=== PATIENT | female | born 1955 | race Caucasian/White ===

== ENCOUNTER 2016-11-02 05:11 | Day surgery (SDC) | payer BC ==
[2016-10-31 13:25] LABS: HEMATOCRIT 40.3 % (36.0-47.0); HEMOGLOBIN 13.4 g/dL (12.0-15.5); HGB HCT DIFFERENCE -0.1; MEAN CORPUSCULAR HEMOGLOBIN 31.7 pg (27.0-33.4); MEAN CORPUSCULAR HGB CONC 33.2 g/dL (32.0-36.0); MEAN CORPUSCULAR VOLUME 96 fl (80-97); RED BLOOD COUNT 4.21 10^6/uL (3.72-5.28); RED CELL DISTRIBUTION WIDTH 13.3 % (11.5-14.0); WHITE BLOOD COUNT 8.4 10^3/uL (4.0-10.5)
[2016-10-31 13:29] LABS: APPEARANCE,URINE CLEAR; BILIRUBIN,URINE NEGATIVE (NEGATIVE); GLUCOSE, URINE NEGATIVE (NEGATIVE); KETONES,URINE NEGATIVE (NEGATIVE); LEUKOCYTE ESTERASE,URINE NEGATIVE (NEGATIVE); NITRITE,URINE NEGATIVE (NEGATIVE); PROTEIN,URINE NEGATIVE (NEGATIVE); URINE SPECIFIC GRAVITY 1.008; UROBILINOGEN,URINE NEGATIVE mg/dL (<2.0)
[2016-10-31 13:53] LABS: ANION GAP 9 (5-19); BLOOD UREA NITROGEN 13 mg/dL (7-20); CALCIUM 9.3 mg/dL (8.4-10.2); CARBON DIOXIDE 31 mmol/L (22-30); CHLORIDE 103 mmol/L (98-107); CREATININE RESULT 0.67 mg/dL (0.52-1.25); GLUCOSE 80 mg/dL (75-110); POTASSIUM 3.8 mmol/L (3.6-5.0); SODIUM 143.3 mmol/L (137-145)
--- NOTE | 2016-10-31 15:25 | EKG REPORT ---
SEVERITY:- ABNORMAL ECG - SINUS RHYTHM PROBABLE LEFT VENTRICULAR HYPERTROPHY : Confirmed by: Familia Loco MD 31-Oct-2016 15:25:16
[~2016-11-02 05:11] MED LIST: CEFAZOLIN 1 GM/D5W RTU 1 GM/50 ML RTUPB IV PRN; LACTATED RINGERS 1000 ML IV PRN; LIDOCAINE 0.5% INJ-PF (5 MG/ML) 50 ML SDV SUBCUT PRN
[2016-11-02] MEDS ORDERED: PROPOFOL INJ 200 MG/20 ML VIAL IV ONE (06:43)
[2016-11-02] MEDS ORDERED: HYDROMORPHONE HCL INJ/PF 2 MG/ML AMPULE ONE (06:43)
[2016-11-02] MEDS ORDERED: KETOROLAC TROMETHAMINE 60 MG/2 ML SDV ONE (06:43)
[2016-11-02] MEDS ORDERED: FENTANYL CITRATE INJ/PF 100 MCG/2 ML AMPUL ONE (06:43)
[2016-11-02] MEDS ORDERED: MIDAZOLAM 2 MG/2 ML INJ ONE (06:43)
[2016-11-02] MEDS ORDERED: ACETAMINOPHEN 100 ML IV ONE (06:44)
[2016-11-02] MEDS ORDERED: FENTANYL CITRATE INJ/PF 100 MCG/2 ML AMPUL IV PRN ×3 (08:09)
[2016-11-02] MEDS ORDERED: PROMETHAZINE HCL INJ 25 MG/1 ML VIAL IV PRN (08:09)
[2016-11-02] MEDS ORDERED: MEPERIDINE HCL/PF INJ 25 MG/1 ML DISP.SYRIN IV PRN (08:09)
[2016-11-02] MEDS ORDERED: MORPHINE SULFATE 10 MG/ML INJ IV PRN (08:09)
[2016-11-02] MEDS ORDERED: DIPHENHYDRAMINE HCL 50 MG/ML VIAL IV PRN (08:09)
[2016-11-02] MEDS ORDERED: ONDANSETRON HCL INJ/PF 4 MG/2 ML SDV IV PRN (08:09)
[2016-11-02] MEDS ORDERED: SUCCINYLCHOLINE CHLORIDE INJ 200 MG/10 ML VIAL ONE (09:42)
[2016-11-02] MEDS ORDERED: GLYCOPYRROLATE INJ 0.4 MG/2 ML VIAL ONE (09:42)
[2016-11-02] MEDS ORDERED: ONDANSETRON HCL INJ/PF 4 MG/2 ML SDV ONE (09:42)
[2016-11-02] MEDS ORDERED: MORPHINE INJ 6 MG DOSE (EDIT ROUTE) IV PRN (10:30)
[2016-11-02] MEDS ORDERED: MORPHINE INJ 4 MG DOSE (EDIT ROUTE) IV PRN (10:30)
[2016-11-02] MEDS ORDERED: MORPHINE INJ 8 MG DOSE IM PRN (10:30)
[2016-11-02] MEDS ORDERED: PROMETHAZINE HCL INJ 25 MG/1 ML VIAL IM PRN (10:30)
[2016-11-02] MEDS ORDERED: AMLODIPINE BESYLATE 10 MG TABLET PO ONE (11:30)
[2016-11-02] MEDS: CEFAZOLIN 1 GM RTU (EDIT START TIME) IV SCH ×2 (11:30→18:38)
[2016-11-02] MEDS ORDERED: RINGERS SOLUTION,LACTATED 500 ML IV ONE (11:30)
[2016-11-02] MEDS ORDERED: LEVOTHYROXINE SODIUM 0.112 MG TABLET PO ONE (12:00)
--- NOTE | 2016-11-02 12:29 | OPERATIVE REPORT E ---
Operative Report NAME: CAROLINA MAR : 1955 AGE: 61Y DATE OF SURGERY: 11/02/2016 ROOM: 205 PREOPERATIVE DIAGNOSES: 1. UTEROVAGINAL PROLAPSE. 2. RECTOCELE. POSTOPERATIVE DIAGNOSES: 1. UTEROVAGINAL PROLAPSE. 2. RECTOCELE. OPERATION: Total vaginal hysterectomy, Delacruz culdoplasty, posterior colporrhaphy and perineoplasty. SURGEON: CHERELLE ALLEN M.D. ESTIMATED BLOOD LOSS: 150 mL. COMPLICATIONS: None. FINDINGS: Normal-appearing uterus, tubes and ovaries. No enterocele formation was noted. Moderate rectocele was appreciated. Good anterior vaginal vault support was appreciated after closure of the cuff precluding the anterior repair need requirement. PROCEDURE: The patient was taken to the operating room and placed in the modified lithotomy position. After adequate anesthesia ascertained, prepped and draped in the usual manner for vaginal hysterectomy. Bladder was drained under sterile technique. EUA performed. Surgical time-out was performed. Antibiotics had been given. Posterior colpotomy incision was made. The uterosacral ligaments were cross-clamped, and held. Cervix was circumscribed. _bladder was advanced sequentially __while parametrium lateral dissection performed up to the level of the uterine vessels done using suture ligature as well as LigaSure advance cautery. The ____bladder___ was advanced and ultimately within the peritoneal cavity. The pedicles were identified, cross-clamped, free tied. The uterus and cervix were handed off the operative field. Further examination of the cul-de-sac and ovaries was performed. The vagina was closed in an anterior posterior fashion__and great anterior support was appreciated. Attention was turned to the posterior cul-de-sac where Delacruz culdoplasty placed x2 without difficulty and held. The perineum was then dissected a 2 finger introitus at the completion. Excess __vaginal skin was removed and dissection progressed up to the point where the rectocele limits noted with_ finger in the rectum Perirectal tissue was brought in over the defect in a multilayered fashion. The vagina was closed with a running stitch of 0 Vicryl. Perineoplasty ensued. At the completion of the procedure, good anterior posterior support was appreciated. A 2 finger introitus was appreciated. No stitches were noted in the rectum post repair. The patient was awakened and taken to recovery room in stable condition. DICTATING PHYSICIAN: CHERELLE ALLEN M.D. [id number] PHY#: [id number] ID: [id number] JOB#: [id number] ACCT: [id number] cc:CHERELLE ALLEN M.D. > MTDD
[2016-11-02] MEDS ORDERED: PROMETHAZINE HCL INJ 25 MG/1 ML VIAL IV ONE (13:30)
[2016-11-02] MEDS: IBUPROFEN 800 MG TABLET PO SCH ×2 (14:38→18:40)
[2016-11-02] MEDS: OXYCODONE-ACETAMINOPHEN 5-325 MG TABLET PO PRN (19:38)
[2016-11-03] MEDS ORDERED: OXYCODONE-ACETAMINOPHEN 5-325 MG TABLET PO PRN (00:34)
[2016-11-03 06:50] LABS: HEMOGLOBIN 11.4 g/dL (12.0-15.5); HGB HCT DIFFERENCE 0.2; MEAN CORPUSCULAR HEMOGLOBIN 31.9 pg (27.0-33.4); MEAN CORPUSCULAR HGB CONC 33.4 g/dL (32.0-36.0); MEAN CORPUSCULAR VOLUME 96 fl (80-97); RED BLOOD COUNT 3.56 10^6/uL (3.72-5.28); RED CELL DISTRIBUTION WIDTH 12.9 % (11.5-14.0); WHITE BLOOD COUNT 7.2 10^3/uL (4.0-10.5)
[2016-11-03] MEDS: OXYCODONE-ACETAMINOPHEN 5-325 MG TABLET PO PRN (07:46)
[2016-11-03] MEDS ORDERED: LEVOTHYROXINE SODIUM 0.112 MG TABLET PO SCH (08:00)
[2016-11-03] MEDS: IBUPROFEN 800 MG TABLET PO SCH (09:00)
[2016-11-03 09:07] VITALS: BP 118/56
[2016-11-03] MEDS ORDERED: AMLODIPINE BESYLATE 5 MG TABLET PO SCH (10:00)
[2016-11-03] MEDS ORDERED: AMLODIPINE BESYLATE 10 MG TABLET PO SCH (10:00)
== END 2016-11-03 09:31 | disposition home or self-care (01) ==
LOC: OROUT 05:11 → 2N 10:20 → OROUT 11-03 09:31
PROVIDERS: ATTEND Specialist
PROC: 0WQNXZZ Repair Female Perineum, External Approach (ICD-10-PCS; 2016-11-02)
PROC: 0UT97ZZ Resection of Uterus, Via Natural or Artificial Opening (ICD-10-PCS; 2016-11-02)
PROC: 0UTC7ZZ Resection of Cervix, Via Natural or Artificial Opening (ICD-10-PCS; 2016-11-02)
PROC: 0JQC0ZZ Repair Pelvic Region Subcutaneous Tissue and Fascia, Open Approach (ICD-10-PCS; principal; 2016-11-02 07:15)
DX: N81.4 Uterovaginal prolapse, unspecified (principal); N81.6 Rectocele; N72 Inflammatory disease of cervix uteri; N84.0 Polyp of corpus uteri; N80.0 Endometriosis of uterus; I10 Essential (primary) hypertension; F32.9 Major depressive disorder, single episode, unspecified; F41.9 Anxiety disorder, unspecified; E07.9 Disorder of thyroid, unspecified; M06.9 Rheumatoid arthritis, unspecified; M85.80 Other specified disorders of bone density and structure, unspecified site; Z79.899 Other long term (current) drug therapy
CPT/HCPCS: 93005; 86900; 86901; 36415 ×2; 86850; 85027 ×2; 80048; 81001; 88307 ×2; 71020; 94799; 93010; 57250; 58260; J2250; J0690; J1885; J3010; J2270; J1170; J2550; J0330; J2405; J2704; J0131; 944